=== PATIENT | male | born 1940 | race Caucasian/White ===

== ENCOUNTER 2019-02-24 11:06 | Day surgery (SDC) | payer OTHER ==
[~2019-02-24] VITALS: Ht 182.9 cm; Wt 79.4 kg
[2019-02-24] MEDS ORDERED: fentaNYL 0.05 MG/ML VIAL ONE (13:05)
[2019-02-24] MEDS: LIDOCAINE 2% 100 MG/5 ML UJET TP ONE (13:18)
[2019-02-24] MEDS ORDERED: fentaNYL 0.05 MG/ML VIAL IVP ONE ×2 (13:50→13:55)
== END 2019-02-24 13:55 | disposition home or self-care (01) ==
LOC: MMU 11:06 → MOR 11:06
PROVIDERS: ATTEND Internal Medicine Gastroenterology
DX: K62.7 Radiation proctitis (principal); E66.9 Obesity, unspecified; Z85.46 Personal history of malignant neoplasm of prostate; Z68.30 Body mass index [BMI] 30.0-30.9, adult; Z79.899 Other long term (current) drug therapy
CPT/HCPCS: 45378; J3010